=== PATIENT | female | born 1990 | race Caucasian/White ===

== ENCOUNTER 2025-07-15 20:03 | Emergency (ER) | payer MEDICAID ==
[~2025-07-15] VITALS: Ht 152.4 cm; Wt 65.9 kg
[2025-07-15 22:00] VITALS: TEMP 97.3
[2025-07-15] MEDS: LIDOCAINE 5% TRANSDERMAL PATCH TD ONE (22:44)
[2025-07-15] MEDS: ACETAMINOPHEN 500 MG TABLET PO ONE (22:44)
[2025-07-16] VITALS: BP 129/81; PULSE 78; RESP 18; O2SAT 100
== END 2025-07-16 01:07 | disposition home or self-care (01) ==
LOC: EMS 20:03
DX: M54.50 Low back pain, unspecified (principal)
CPT/HCPCS: 99283